=== PATIENT | female | born 1980 | race Caucasian/White ===

== ENCOUNTER 2024-05-27 20:14 | Emergency (ER) | payer OTHER ==
[2024-05-27] MEDS: Ondansetron 4 MG/2 ML SDV IVPUSH ONE (20:38)
[2024-05-27] MEDS: HYDROmorphone 0.5 MG/0.5 ML Syringe IVPUSH ONE (20:38)
[2024-05-27] MEDS: Ketorolac 30 MG/ML SDV IVPUSH ONE (20:38)
[2024-05-27] MEDS: Dexamethasone 4 MG/ML SDV IVPUSH ONE (21:23)
== END 2024-05-27 22:00 | disposition home or self-care (01) ==
LOC: JD.ED 20:14
DX: G89.18 Other acute postprocedural pain (principal); M54.50 Low back pain, unspecified; E78.00 Pure hypercholesterolemia, unspecified; Z88.0 Allergy status to penicillin; Z88.2 Allergy status to sulfonamides; Z88.8 Allergy status to other drugs, medicaments and biological substances; Z79.899 Other long term (current) drug therapy
CPT/HCPCS: 96374; 96375; 99283; J1171; J1885; J2405; 99284